=== PATIENT | male | born 1945 | race Hispanic/Latino ===

== ENCOUNTER 2016-08-25 18:40 | Emergency (ER) | payer MEDICARE, OTHER ==
[2016-08-25 18:41] VITALS: BMI 33.0
[2016-08-25 19:06] VITALS: BP 121/61; PULSE 99; RESP 16; TEMP 98.2; O2SAT 100
--- NOTE | 2016-08-25 19:42 | ED PDOC ---
Upper Extremity Pain/Injury Time Seen by Provider: 08/25/16 19:40 Chief Complaint (Nursing): Finger,Hand,&Wrist Chief Complaint (Provider): left hand injury History Per: Patient History/Exam Limitations: no limitations Additional Complaint(s): 70yo M with CKD on dialysis in ED after trip and fall today injuring left hand with swelling pain on ROM no numbness tinlgig or weakness. admits to pain. Past Medical History Reviewed: Historical Data, Nursing Documentation, Vital Signs Vital Signs: Last Vital Signs Temp 98.2 F 08/25/16 19:04 Pulse 99 H 08/25/16 19:04 Resp 16 08/25/16 19:04 BP 121/61 08/25/16 19:04 Pulse Ox 100 08/25/16 19:04 - Medical History PMH: Anemia, Arthritis, Benign Prostatic Hyperplasia, HTN, Chronic Kidney Disease Denies: Alzheimer's Disease, Asthma, Atrial Fibrillation, HIV - Family History Family History: States: No Known Family Hx - Immunization History Hx Tetanus Toxoid Vaccination: No Hx Influenza Vaccination: No Hx Pneumococcal Vaccination: No - Home Medications Home Medications: Ambulatory Orders Medication Instructions Recorded Allopurinol 300 mg PO DAILY 04/19/15 DULoxetine [Cymbalta] 60 mg PO DAILY 04/19/15 Terazosin [Hytrin] 10 mg PO HS 04/19/15 traMADol [Ultram] 50 mg PO TID PRN 04/19/15 amLODIPine [Norvasc] 10 mg PO DAILY #0 tab 04/20/15 Calcium Acetate [Phoslo] 1 cap PO TID 11/10/15 Furosemide [Lasix] 80 mg PO QOTHERDAY 11/10/15 Omeprazole 20 mg PO DAILY 11/10/15 - Allergies Allergies/Adverse Reactions: Allergies Allergy/AdvReac Type Severity Reaction Status Date / Time losartan Allergy SWELLING Verified 08/25/16 19:03 Review of Systems ROS Statement: Except As Marked, All Systems Reviewed And Found Negative Musculoskeletal: Positive for: Hand Pain Physical Exam - Reviewed Nursing Documentation Reviewed: Yes Vital Signs Reviewed: Yes - Physical Exam Appears: Positive for: Non-toxic, No Acute Distress, Uncomfortable Head Exam: Positive for: ATRAUMATIC, NORMAL INSPECTION, NORMOCEPHALIC Skin: Positive for: Normal Color, Warm, DRY Cardiovascular/Chest: Positive for: Regular Rate, Rhythm Respiratory: Positive for: CNT, Normal Breath Sounds Extremity: Positive for: Other (left hand:swelling to dorsum of hand some brusing note dec ROM to hand nuerovasc intact no defomity no snuf box tenderness ) Neurologic/Psych: Positive for: Alert, Oriented - ECG O2 Sat by Pulse Oximetry: 100 - Radiology X-Ray: Interpreted by Me X-Ray Interpretation: No Acute Disease (soft tissue swelling. ) Medical Decision Making Medical Decision Making: dx: hand contusion tx: given a hand splint volar and advised to have repeat xray in 1 week after swelling has decrease. pt understands and agrees with plan. Disposition - Clinical Impression Clinical Impression: Hand injury - Patient ED Disposition Is Patient to be Admitted: No Counseled Patient/Family Regarding: Studies Performed, Diagnosis, Need For Followup - Disposition Referrals: [facility] [Outside] [facility] [Outside] Disposition: Routine/Home Disposition Time: 20:03 Condition: STABLE Instructions: Hand Sprain (ED)
--- NOTE | 2016-08-26 09:23 | RAD ---
PROCEDURE: Left Wrist Radiographs. HISTORY: wrist injury COMPARISON: None. FINDINGS: BONES: Normal. No fracture. JOINTS: Normal. No dislocation. SOFT TISSUES: Normal. OTHER FINDINGS: None. IMPRESSION: No acute findings related to/accounting for the clinical presentation.
== END 2016-08-25 20:42 | disposition home or self-care (01) ==
LOC: H.ER 18:40
DX: S60.222A Contusion of left hand, initial encounter (principal); W19.XXXA Unspecified fall, initial encounter; Y92.89 Other specified places as the place of occurrence of the external cause; D64.9 Anemia, unspecified; I12.9 Hypertensive chronic kidney disease with stage 1 through stage 4 chronic kidney disease, or unspecified chronic kidney disease